=== PATIENT | female | born 1995 | race Caucasian/White ===

== ENCOUNTER 2018-12-14 20:59 | Emergency (ER) | payer OTHER ==
[2018-12-14] MEDS ORDERED: TDAP ADULT 0.5 ML INJ (BOOSTRIX) IM ONE (21:30)
--- NOTE | 2018-12-14 21:39 | EDPHY ---
H & P Stated Complaint: Laceration to R heel rock climbing. Time Seen by Provider: 12/14/18 21:24 HPI/ROS: Chief Complaint: Right foot laceration HPI: 23-year-old woman sustained a laceration to the heel of her right foot [place] slipped on some mud this afternoon. She did irrigate the laceration. Is not aware of any foreign bodies. Does not recall last tetanus shot. Denies any other injuries. ROS: 10 systems were reviewed and were negative except those elements noted in the HPI. PMH: Denies Social History: [No] smoking, [no] alcohol, [ no recreational drug use] Family History: [non-contributory] Physical Exam: General: Awake, alert, no acute distress Right foot: Patient has a 2 cm laceration on the bottom of her right heel into the subcutaneous tissue. No foreign bodies noted. Sensations intact. There is no erythema or discharge. She has 2+ dorsalis pedis and posterior tibial pulses. Capillary refills less than 2 sec. Sensations intact distally. Skin: No rash - Personal History LMP (Females 10-55): 15-21 Days Ago Current Tetanus/Diphtheria Vaccine: No Current Tetanus Diphtheria and Acellular Pertussis (TDAP): No - Medical/Surgical History Hx Asthma: No Hx Chronic Respiratory Disease: No Hx Diabetes: No Hx Cardiac Disease: No Hx Renal Disease: No Hx Cirrhosis: No Hx Alcoholism: No Hx HIV/AIDS: No Hx Splenectomy or Spleen Trauma: No Other PMH: wisdom. - Social History Smoking Status: Never smoked Constitutional: Initial Vital Signs Temperature (C) 36.9 C 12/14/18 21:07 Heart Rate 103 H 12/14/18 21:07 Respiratory Rate 16 12/14/18 21:07 Blood Pressure 135/84 H 12/14/18 21:07 O2 Sat (%) 96 12/14/18 21:07 O2 Delivery Mode Room Air Allergies/Adverse Reactions: No Known Allergies Allergy (Unverified 08/05/15 21:18) Home Medications: Medication Instructions Recorded Azithromycin [Zithromax 250 mg 1 dose PO DAILY #6 tab 08/05/15 tab(RX)] Nitrofurantoin Macrobid [Macrobid] 100 mg PO BID 5 Days cap 08/05/15 Medical Decision Making Procedures: Procedure: Laceration repair. Verbal consent was obtained from the patient. The 2 cm laceration on the right foot was anesthetized in the usual fashion. The wound was irrigated, draped and explored to its base with a gloved finger. There were no deep structures involved. No tendon injury was identified. The wound was repaired with 5, 4-0 Ethilon simple interrupted sutures. The wound repair was uncomplicated. The procedure was performed by myself. Departure - Departure Disposition: Home, Routine, Self-Care Clinical Impression: Laceration Condition: Good Instructions: Care For Your Stitches (ED), Laceration (ED), Diphtheria/ Acellular Pertussis/Tetanus Booster Vaccine (By injection) Additional Instructions: Sutures need to be removed in 10 days. You may return to the emergency department we will be happy to remove them for you. Apply antibiotic ointment daily. Try not to allow the laceration to get soaking wet and try to avoid keeping your foot in a moist shoe for hours on end. Return sooner for increasing redness, discharge from the wound, streaking up your leg, fevers, or any other concerns. Referrals: NONE *PRIMARY CARE P,. [Primary Care Provider] - As per Instructions
[2018-12-14 22:27] VITALS: BP 119/76
== END 2018-12-14 22:04 | disposition home or self-care (01) ==
LOC: CED 20:59
PROC: 0HQMXZZ Repair Right Foot Skin, External Approach (ICD-10-PCS; principal; 2018-12-14)
DX: S91.311A Laceration without foreign body, right foot, initial encounter (principal); Z23 Encounter for immunization; W01.0XXA Fall on same level from slipping, tripping and stumbling without subsequent striking against object, initial encounter; Y92.89 Other specified places as the place of occurrence of the external cause
CPT/HCPCS: 90471-ER; 99283-ER